=== PATIENT | female | born 1935 | race Caucasian/White ===

== ENCOUNTER → 2016-12-25 | Outpatient (CLI) | payer OTHER, MEDICAID ==
[~2016-12-25] MED LIST: ASPI81TA27 PO
[2016-12-25 15:28] LABS: Basophils # (auto) 0 uL; Basophils % (auto) 0.6 % (0.0-2.0); DEFINITIVE VIEW TRANSMISSION; Eosinophils # (auto) 0.1 uL; Hematocrit 39.3 % (36.0-46.0); Hemoglobin 12.7 g/dL (12.2-16.2); Lymphocytes # (auto) 2.9 uL; Lymphocytes % (auto) 34.2 % (10.0-50.0); Mean Corpuscular Hemoglobin 25.6 pg (28.0-32.0); Mean Corpuscular Hgb Conc. 32.3 g/dL (32.0-36.0); Mean Corpuscular Volume 79.3 fL (80.0-100.0); Mean Platelet Volume 8.2 fL (7.4-10.4); Monocytes # (auto) 0.5 uL; Monocytes % (auto) 5.6 % (0.0-12.0); Neutrophils # (auto) 4.9 uL; Neutrophils % (auto) 58.6 % (37.0-80.0); Platelet Count (auto) 347 10^3/uL (140-450); Red Cell Distribution Width 14.3 % (11.6-16.0); White Blood Cell 8.4 10^3/uL (4.4-10.8)
[2016-12-25 15:51] LABS: INR 1.04 (0.9-1.15); Partial Thromboplastin Time 24.6 sec (22.64-33.71); Prothrombin Time 10.7 sec (9.37-12.3)
[2016-12-25 16:05] LABS: Albumin 3.7 g/dL (3.4-5.0); BUN/Creatinine Ratio 12.8; Bilirubin, Total 0.6 mg/dL (0.2-1.0); Calcium 8.8 mg/dL (8.5-10.1); Total Protein 7.3 g/dL (6.4-8.2)
== END | disposition home or self-care (01) ==
LOC: LAB 14:29
PROVIDERS: ATTEND Orthopaedic Surgery
DX: M17.11 Unilateral primary osteoarthritis, right knee (principal)
CPT/HCPCS: 36415; 80053; 85025; 85610; 85730; 86850; 86900; 86901

== ENCOUNTER 2017-01-28 06:33 | Inpatient (IN) | payer OTHER, MEDICAID ==
[~2017-01-28] VITALS: Ht 175.3 cm; Wt 64.4 kg
[2017-01-28] MEDS ORDERED: SODIUM CHLORIDE 0.9% 1,000 ML IV ONE (06:50)
[2017-01-28] MEDS ORDERED: HYDROcodone-ACET 5/325MG TAB PO ONE (07:00)
[2017-01-28 07:38] LABS: Basophils # (auto) 0 uL; Basophils % (auto) 0.5 % (0.0-2.0); DEFINITIVE VIEW TRANSMISSION; Eosinophils # (auto) 0.1 uL; Eosinophils % (auto) 1.3 % (0.0-7.0); Hematocrit 35.2 % (36.0-46.0); Hemoglobin 11.7 g/dL (12.2-16.2); Lymphocytes # (auto) 1.6 uL; Lymphocytes % (auto) 24.8 % (10.0-50.0); Mean Corpuscular Hemoglobin 26.5 pg (28.0-32.0); Mean Corpuscular Hgb Conc. 33.2 g/dL (32.0-36.0); Mean Corpuscular Volume 79.9 fL (80.0-100.0); Mean Platelet Volume 8.1 fL (7.4-10.4); Monocytes # (auto) 0.4 uL; Monocytes % (auto) 6.6 % (0.0-12.0); Neutrophils # (auto) 4.4 uL; Neutrophils % (auto) 66.8 % (37.0-80.0); Platelet Count (auto) 394 10^3/uL (140-450); Red Cell Distribution Width 16.2 % (11.6-16.0); White Blood Cell 6.7 10^3/uL (4.4-10.8)
[2017-01-28 07:42] LABS: Calcium 8.2 mg/dL (8.5-10.1); Potassium 3.3 mmol/L (3.5-5.1)
[2017-01-28 07:44] LABS: BUN/Creatinine Ratio 22.5
[2017-01-28 08:00] LABS: Bilirubin, Total 0.6 mg/dL (0.2-1.0); Total Protein 6.5 g/dL (6.4-8.2)
[2017-01-28] MEDS ORDERED: ENOXAPARIN SOD 60 MG/0.6 ML SYRINGE SC ONE (08:15)
[2017-01-28] MEDS ORDERED: POTASSIUM CHL 10% (20 MEQ/15ML) ORAL SOLN PO ONE (08:15)
[2017-01-28] MEDS ORDERED: ACETAMINOPHEN 500 MG TAB PO PRN (09:00)
[2017-01-28] MEDS ORDERED: TEMAZEPAM 15 MG CAP PO PRN (09:00)
[2017-01-28] MEDS ORDERED: NITROGLYCERIN 0.4 MG SL TAB SL PRN (09:00)
[2017-01-28] MEDS ORDERED: MORPHINE SULF INJ 2 MG/ML SYRINGE 1ML IV PRN ×2 (09:00)
[2017-01-28] MEDS ORDERED: PROMETHAZINE HCL 25 MG/ML 1ML IV PRN (09:00)
[2017-01-28] MEDS ORDERED: HYDROcodone-ACET 5/325MG TAB PO PRN (09:00)
[2017-01-28] MEDS ORDERED: DEXTROSE (50%) 50ML SYRG IV PRN (09:00)
[2017-01-28] MEDS ORDERED: LORazepam 0.5 MG TAB PO PRN (09:00)
[2017-01-28] MEDS ORDERED: LACTULOSE 20Gm/30ML SOLN PO PRN (09:00)
[2017-01-28] MEDS: ENOXAPARIN SOD 60 MG/0.6 ML SYRINGE SC SCH ×3 (09:15→22:00)
[2017-01-28] MEDS: SODIUM CHLORIDE 0.9% 1,000 ML IV SCH ×2 (09:25→22:16)
[2017-01-28] MEDS: PANTOPRAZOLE 40 MG TAB PO SCH (10:00)
[2017-01-28] MEDS: NITROGLYCERIN 0.2MG/HR TOPICAL PATCH TD SCH (10:00)
[2017-01-28] MEDS: ASPirin 81 mg TAB PO SCH (10:00)
[2017-01-28] MEDS: METOPROLOL TARTRATE 25 MG TAB PO SCH ×2 (10:00→17:00)
[2017-01-28] MEDS: ACCU-CHEK COMFORT CURVE STRIP VI SCH ×3 (11:25→22:00)
[2017-01-28] MEDS: InsuLIN REG 1unit/0.01ml Soln (100units/ml) SC SCH ×3 (11:28→22:54)
[2017-01-28] MEDS ORDERED: CLOPIDOGREL 300 MG TAB PO ONE (13:15)
[2017-01-28 14:52] LABS: Urine Bilirubin Negative (Negative); Urine Blood Negative /uL (Negative); Urine Color Yellow (Yellow); Urine Glucose Normal (Normal); Urine Nitrite Negative (Negative); Urine RBC <1 /hpf (0 - 4); Urine Squamous Epithelial Cell FEW /hpf (<5)
[2017-01-28 14:56] LABS: Urine Ketone 1+ (Negative)
[2017-01-28] MEDS ORDERED: ATORVASTATIN 20 MG TAB PO SCH (22:00)
[2017-01-29] VITALS (7 sets, daily range): BP systolic 103–147; BP diastolic 35–66
[2017-01-29 06:20] LABS: Basophils # (auto) 0 uL; Basophils % (auto) 0.5 % (0.0-2.0); DEFINITIVE VIEW TRANSMISSION; Eosinophils # (auto) 0.1 uL; Eosinophils % (auto) 1.6 % (0.0-7.0); Hematocrit 32.1 % (36.0-46.0); Hemoglobin 10.6 g/dL (12.2-16.2); Lymphocytes % (auto) 31.1 % (10.0-50.0); Mean Corpuscular Hemoglobin 26.5 pg (28.0-32.0); Mean Corpuscular Hgb Conc. 33.1 g/dL (32.0-36.0); Mean Corpuscular Volume 80.2 fL (80.0-100.0); Mean Platelet Volume 8.4 fL (7.4-10.4); Monocytes # (auto) 0.4 uL; Monocytes % (auto) 7.1 % (0.0-12.0); Neutrophils # (auto) 3.8 uL; Neutrophils % (auto) 59.7 % (37.0-80.0); Platelet Count (auto) 351 10^3/uL (140-450); Red Cell Distribution Width 16.3 % (11.6-16.0); White Blood Cell 6.3 10^3/uL (4.4-10.8)
[2017-01-29] MEDS: ACCU-CHEK COMFORT CURVE STRIP VI SCH ×2 (06:20→11:45)
[2017-01-29] MEDS: InsuLIN REG 1unit/0.01ml Soln (100units/ml) SC SCH ×2 (06:20→11:30)
[2017-01-29 06:55] LABS: Potassium 3.3 mmol/L (3.5-5.1)
[2017-01-29 07:04] LABS: Albumin 2.5 g/dL (3.4-5.0); Bilirubin, Total 0.6 mg/dL (0.2-1.0); Calcium 7.6 mg/dL (8.5-10.1); Total Protein 5.7 g/dL (6.4-8.2)
[2017-01-29] MEDS: METOPROLOL TARTRATE 25 MG TAB PO SCH (10:00)
[2017-01-29] MEDS ORDERED: CLOPIDOGREL BISULFATE 75 MG TAB PO SCH (10:00)
[2017-01-29] MEDS: ENOXAPARIN SOD 60 MG/0.6 ML SYRINGE SC SCH (10:23)
[2017-01-29] MEDS: ASPirin 81 mg TAB PO SCH (10:23)
[2017-01-29] MEDS: NITROGLYCERIN 0.2MG/HR TOPICAL PATCH TD SCH (10:24)
[2017-01-29] MEDS: PANTOPRAZOLE 40 MG TAB PO SCH (10:27)
[2017-01-29] MEDS ORDERED: POTASSIUM CHL 20 Meq TABLET PO ONE (11:00)
[2017-01-29] MEDS ORDERED: ATOR80TA PO (12:02)
[2017-01-29] MEDS ORDERED: FAM20T PO (12:02)
[2017-01-29] MEDS ORDERED: MULTTAB67 OR (12:02)
[2017-01-29] MEDS ORDERED: LISI2.5T47 PO (12:02)
[2017-01-29] MEDS ORDERED: TICA90TA PO (12:02)
[2017-01-29] MEDS ORDERED: MULTTAB67 PO (12:02)
[2017-01-29] MEDS ORDERED: GLYB5TAB8 PO (12:02)
[2017-01-29] MEDS ORDERED: ASPI-378 PO (12:02)
[2017-01-29 12:08] LABS: Uric Acid 3.4 mg/dL (2.6-6.0)
[2017-01-29] MEDS ORDERED: ATORVASTATIN 20 MG TAB PO SCH (22:00)
[2017-01-30 08:10] LABS: Rheumatoid Arthritis Factor 12.8 IU/mL (0.0-13.9)
[2017-01-30] MEDS ORDERED: LISINOPRIL 5 MG TAB PO SCH (10:00)
[2017-01-30] MEDS ORDERED: ENOXAPARIN SOD 40 MG/0.4 ML SYRINGE SC SCH (10:00)
[2017-01-30 16:07] LABS: Sjogren's Anti-SS-A Antibody <0.2 AI (0.0-0.9)
== END 2017-01-29 16:50 | disposition home or self-care (01) | DRG 562 ==
LOC: EDBD 06:33 → ER 06:33 → TELE 06:34 → DOU IN ICU 01-29 02:29
PROVIDERS: ADMIT Internal Medicine; ATTEND Internal Medicine
DX: S93.491A Sprain of other ligament of right ankle, initial encounter (principal); I21.4 Non-ST elevation (NSTEMI) myocardial infarction; E43 Unspecified severe protein-calorie malnutrition; E44.1 Mild protein-calorie malnutrition; D63.8 Anemia in other chronic diseases classified elsewhere; E11.9 Type 2 diabetes mellitus without complications; E03.9 Hypothyroidism, unspecified; Z68.21 Body mass index [BMI] 21.0-21.9, adult; E78.5 Hyperlipidemia, unspecified; E87.6 Hypokalemia; F03.90 Unspecified dementia, unspecified severity, without behavioral disturbance, psychotic disturbance, mood disturbance, and anxiety; F32.9 Major depressive disorder, single episode, unspecified; F41.9 Anxiety disorder, unspecified; I10 Essential (primary) hypertension; Z96.651 Presence of right artificial knee joint; X58.XXXA Exposure to other specified factors, initial encounter; M19.90 Unspecified osteoarthritis, unspecified site; I44.0 Atrioventricular block, first degree; I25.10 Atherosclerotic heart disease of native coronary artery without angina pectoris; I25.2 Old myocardial infarction; Z82.49 Family history of ischemic heart disease and other diseases of the circulatory system; Z86.73 Personal history of transient ischemic attack (TIA), and cerebral infarction without residual deficits; Z95.5 Presence of coronary angioplasty implant and graft; Z90.49 Acquired absence of other specified parts of digestive tract; Z90.710 Acquired absence of both cervix and uterus; Z90.89 Acquired absence of other organs; Y93.9 Activity, unspecified; Y92.9 Unspecified place or not applicable; Y99.9 Unspecified external cause status
CPT/HCPCS: 36415; 73610; 80053; 80061; 81001; 82550; 82607; 82746; 82962; 83036; 83516; 84484; 84550; 85025; 85379; 85652; 86141; 86225; 86235; 86431; 87081; 93005; 93970; 96360; 96361

== ENCOUNTER 2017-01-31 20:58 | Emergency (ER) | payer OTHER, MEDICAID ==
[~2017-01-31] VITALS: Ht 175.3 cm; Wt 59.0 kg
[~2017-01-31 20:58] MED LIST changes: +ASPI-378 PO; -ASPI81TA27 PO; +ATOR80TA PO; +FAM20T PO; +GLYB5TAB8 PO; +LISI2.5T47 PO; +MULTTAB67 OR; +MULTTAB67 PO; +TICA90TA PO
[2017-01-31 22:55] VITALS: BP 132/76
[2017-01-31] MEDS ORDERED: traMADol HCL 50 MG TAB PO ONE (23:00)
== END 2017-01-31 23:20 | disposition home or self-care (01) ==
LOC: EDBD 20:58 → ER 21:02
DX: S86.911A Strain of unspecified muscle(s) and tendon(s) at lower leg level, right leg, initial encounter (principal); E11.9 Type 2 diabetes mellitus without complications; I10 Essential (primary) hypertension; E78.5 Hyperlipidemia, unspecified; E07.89 Other specified disorders of thyroid; Z90.89 Acquired absence of other organs; Z90.710 Acquired absence of both cervix and uterus
CPT/HCPCS: 73562; 82962; 93005

== ENCOUNTER → 2017-04-06 | Outpatient (CLI) | payer MEDICARE, MEDICAID ==
[2017-04-06 11:12] LABS: Basophils # (auto) 0.1 uL; Basophils % (auto) 0.7 % (0.0-2.0); Eosinophils # (auto) 0.3 uL; Eosinophils % (auto) 3.9 % (0.0-7.0); Hematocrit 39.2 % (36.0-46.0); Hemoglobin 12.9 g/dL (12.2-16.2); Lymphocytes # (auto) 1.9 uL; Lymphocytes % (auto) 24.9 % (10.0-50.0); Mean Corpuscular Hemoglobin 28.1 pg (28.0-32.0); Mean Corpuscular Hgb Conc. 33.1 g/dL (32.0-36.0); Mean Corpuscular Volume 84.9 fL (80.0-100.0); Mean Platelet Volume 8.1 fL (7.4-10.4); Monocytes # (auto) 0.4 uL; Monocytes % (auto) 5.5 % (0.0-12.0); Neutrophils # (auto) 4.9 uL; Platelet Count (auto) 354 10^3/uL (140-450); Red Cell Distribution Width 16.5 % (11.6-16.0); White Blood Cell 7.5 10^3/uL (4.4-10.8)
[2017-04-06 12:01] LABS: Albumin 3.8 g/dL (3.4-5.0); BUN/Creatinine Ratio 12.5; Bilirubin, Total 0.5 mg/dL (0.2-1.0); Calcium 8.8 mg/dL (8.5-10.1); Potassium 3.4 mmol/L (3.5-5.1); Total Protein 7.4 g/dL (6.4-8.2)
== END | disposition home or self-care (01) ==
LOC: LAB 09:34
DX: E11.21 Type 2 diabetes mellitus with diabetic nephropathy (principal)
CPT/HCPCS: 36415; 80053; 80061; 83036; 84443; 85025

== ENCOUNTER 2017-05-18 10:04 | Emergency (ER) | payer OTHER ==
[~2017-05-18] VITALS: Ht 175.3 cm; Wt 58.5 kg
[2017-05-18 10:24] VITALS: BP 138/98
[2017-05-18] MEDS ORDERED: KETOROLAC TROMETH 30 MG/ML 1ML VIAL IV ONE (11:30)
[2017-05-18] MEDS ORDERED: KETOROLAC TROMETH 30 MG/ML 1ML VIAL IM ONE (11:45)
== END 2017-05-18 12:37 | disposition home or self-care (01) ==
LOC: ER 10:04
DX: E11.9 Type 2 diabetes mellitus without complications (principal); M25.552 Pain in left hip; E78.5 Hyperlipidemia, unspecified; I10 Essential (primary) hypertension; E07.89 Other specified disorders of thyroid; Z90.49 Acquired absence of other specified parts of digestive tract; Z90.710 Acquired absence of both cervix and uterus; Z90.89 Acquired absence of other organs; Z79.899 Other long term (current) drug therapy
CPT/HCPCS: 74176; 96372; 99284; J1885

== ENCOUNTER 2017-07-01 15:12 | Inpatient (IN) | payer OTHER, MEDICAID ==
[~2017-07-01] VITALS: Ht 175.3 cm; Wt 58.1 kg
[2017-07-01] MEDS ORDERED: SODIUM CHLORIDE 0.9% 1,000 ML IV ONE (15:27)
[2017-07-01] MEDS ORDERED: LIDOCAINE 1% HCL (LOCAL ANESTH.) INJ 20ML MDV ID ONE (15:30)
[2017-07-01 16:07] LABS: Basophils # (auto) 0 uL; Basophils % (auto) 0.3 % (0.0-2.0); CONDITION Y; Eosinophils # (auto) 0 uL; Eosinophils % (auto) 0.2 % (0.0-7.0); Hematocrit 43.6 % (36.0-46.0); Hemoglobin 14.6 g/dL (12.2-16.2); Lymphocytes # (auto) 1.8 uL; Lymphocytes % (auto) 17.7 % (10.0-50.0); Mean Corpuscular Hemoglobin 28.2 pg (28.0-32.0); Mean Corpuscular Hgb Conc. 33.5 g/dL (32.0-36.0); Mean Corpuscular Volume 84.2 fL (80.0-100.0); Mean Platelet Volume 8.1 fL (7.4-10.4); Monocytes # (auto) 0.5 uL; Monocytes % (auto) 5.1 % (0.0-12.0); Neutrophils # (auto) 7.7 uL; Neutrophils % (auto) 76.7 % (37.0-80.0); Platelet Count (auto) 326 10^3/uL (140-450); Red Cell Distribution Width 13.9 % (11.6-16.0); White Blood Cell 10.1 10^3/uL (4.4-10.8)
[2017-07-01 16:24] LABS: Albumin 3.7 g/dL (3.4-5.0); BUN/Creatinine Ratio 13.3; Calcium 8.6 mg/dL (8.5-10.1); Magnesium 2.1 mg/dL (1.6-2.6); Potassium 3.1 mmol/L (3.5-5.1)
[2017-07-01 16:29] LABS: Bilirubin, Total 1.3 mg/dL (0.2-1.0); Total Protein 7.7 g/dL (6.4-8.2)
[2017-07-01 16:48] LABS: INR 0.98 (0.9-1.15); Partial Thromboplastin Time 25.1 sec (22.64-33.71); Prothrombin Time 10.7 sec (9.37-12.3)
[2017-07-01] MEDS ORDERED: LORazepam 0.5 MG TAB PO PRN (17:15)
[2017-07-01] MEDS ORDERED: PROMETHAZINE HCL 25 MG/ML 1ML IV PRN (17:15)
[2017-07-01] MEDS ORDERED: NITROGLYCERIN 0.4 MG SL TAB SL PRN (17:15)
[2017-07-01] MEDS ORDERED: LACTULOSE 20Gm/30ML SOLN PO PRN (17:15)
[2017-07-01] MEDS ORDERED: HYDROcodone-ACET 5/325MG TAB PO PRN (17:15)
[2017-07-01] MEDS ORDERED: ACETAMINOPHEN 500 MG TAB PO PRN (17:15)
[2017-07-01] MEDS ORDERED: MORPHINE SULF INJ 2 MG/ML SYRINGE 1ML IV PRN ×2 (17:15)
[2017-07-01] MEDS ORDERED: DEXTROSE (50%) 50ML SYRG IV PRN (17:15)
[2017-07-01] MEDS ORDERED: POTASSIUM CHL 20MEQ/100ML 100 ML IV ONE (17:15)
[2017-07-01] MEDS ORDERED: TEMAZEPAM 15 MG CAP PO PRN (17:15)
[2017-07-01] MEDS: SODIUM CHLORIDE 0.9% 1,000 ML IV SCH (18:00)
[2017-07-01] MEDS: FAMOTIDINE 20 MG TAB PO SCH (18:38)
[2017-07-01] MEDS: glyBURIDE 5 MG TAB PO SCH (18:47)
[2017-07-01 19:03] LABS: Temperature: 22.2 C (20.0-25.0)
[2017-07-01] MEDS ORDERED: CYANOCOBALAMIN (B-12) 1000 MCG/1 ML VIAL IM ONE (20:15)
[2017-07-01 20:30] VITALS: BP 134/74
[2017-07-01] MEDS: TICAGRELOR 90 MG TAB PO SCH (21:48)
[2017-07-01] MEDS: FOLIC ACID 1 MG in D5W 5% 50 ML INJ SCH (21:58)
[2017-07-01 22:00] VITALS: BP 134/74
[2017-07-01] MEDS ORDERED: ATORVASTATIN 20 MG TAB PO SCH (22:00)
[2017-07-01] MEDS: ATORVASTATIN 20 MG TAB PO SCH (22:03)
[2017-07-01] MEDS: ACCU-CHEK COMFORT CURVE STRIP VI SCH (22:15)
[2017-07-01] MEDS: InsuLIN REG 1unit/0.01ml Soln (100units/ml) SC SCH (22:15)
[2017-07-02] MEDS: SODIUM CHLORIDE 0.9% 1,000 ML IV SCH ×2 (04:53→17:55)
[2017-07-02 05:00] VITALS: BP 137/71
[2017-07-02] MEDS: InsuLIN REG 1unit/0.01ml Soln (100units/ml) SC SCH ×4 (06:20→22:00)
[2017-07-02] MEDS: ACCU-CHEK COMFORT CURVE STRIP VI SCH ×4 (06:20→22:25)
[2017-07-02 08:33] VITALS: BP 140/80
[2017-07-02] MEDS: TICAGRELOR 90 MG TAB PO SCH ×2 (10:00→22:20)
[2017-07-02] MEDS ORDERED: POTASSIUM CHL 20 Meq TABLET PO ONE (11:00)
[2017-07-02] MEDS: ASPirin-EC 81 mg tab PO SCH (11:40)
[2017-07-02] MEDS: LISINOPRIL 5 MG TAB PO SCH (11:42)
[2017-07-02] MEDS: glyBURIDE 5 MG TAB PO SCH ×2 (11:42→17:54)
[2017-07-02] MEDS: ENOXAPARIN SOD 40 MG/0.4 ML SYRINGE SC SCH (11:43)
[2017-07-02] MEDS: CYANOCOBALAMIN 500 MCG TAB PO SCH (11:43)
[2017-07-02] MEDS: FAMOTIDINE 20 MG TAB PO SCH (11:43)
[2017-07-02] MEDS: FOLIC ACID 1 MG in D5W 5% 50 ML INJ SCH (11:45)
[2017-07-02 13:29] VITALS: BP 137/73
[2017-07-02 16:57] VITALS: BP 129/73
[2017-07-02 22:00] VITALS: BP 110/65
[2017-07-02] MEDS: ATORVASTATIN 20 MG TAB PO SCH (22:23)
[2017-07-03 05:00] VITALS: BP 122/70
[2017-07-03] MEDS: ACCU-CHEK COMFORT CURVE STRIP VI SCH ×4 (06:35→22:20)
[2017-07-03] MEDS: InsuLIN REG 1unit/0.01ml Soln (100units/ml) SC SCH ×4 (06:36→22:26)
[2017-07-03] MEDS: SODIUM CHLORIDE 0.9% 1,000 ML IV SCH ×2 (06:41→19:11)
[2017-07-03 06:55] LABS: BUN/Creatinine Ratio 24.6; Calcium 7.8 mg/dL (8.5-10.1)
[2017-07-03 07:05] LABS: Potassium 2.9 mmol/L (3.5-5.1)
[2017-07-03] MEDS ORDERED: POTASSIUM CHL 20 Meq TABLET PO ONE (07:45)
[2017-07-03] MEDS: glyBURIDE 5 MG TAB PO SCH ×2 (08:00→17:31)
[2017-07-03 08:08] VITALS: BP 109/60
[2017-07-03] MEDS: FOLIC ACID 1 MG in D5W 5% 50 ML INJ SCH (10:00)
[2017-07-03] MEDS: CYANOCOBALAMIN 500 MCG TAB PO SCH (10:21)
[2017-07-03] MEDS: ENOXAPARIN SOD 40 MG/0.4 ML SYRINGE SC SCH (10:21)
[2017-07-03] MEDS: TICAGRELOR 90 MG TAB PO SCH ×2 (10:21→22:19)
[2017-07-03] MEDS: FAMOTIDINE 20 MG TAB PO SCH (10:22)
[2017-07-03] MEDS: ASPirin-EC 81 mg tab PO SCH (10:22)
[2017-07-03] MEDS: LISINOPRIL 5 MG TAB PO SCH (10:23)
[2017-07-03 12:17] VITALS: BP 95/53
[2017-07-03 16:31] VITALS: BP 91/57
[2017-07-03 21:55] VITALS: BP 126/63
[2017-07-03] MEDS: ATORVASTATIN 20 MG TAB PO SCH (22:19)
[2017-07-04 04:53] VITALS: BP 148/79
[2017-07-04] MEDS: ACCU-CHEK COMFORT CURVE STRIP VI SCH ×4 (06:37→22:46)
[2017-07-04] MEDS: InsuLIN REG 1unit/0.01ml Soln (100units/ml) SC SCH ×4 (06:37→22:46)
[2017-07-04 06:39] LABS: Basophils # (auto) 0 uL; Basophils % (auto) 0.4 % (0.0-2.0); CONDITION Y; Eosinophils # (auto) 0.2 uL; Eosinophils % (auto) 2.6 % (0.0-7.0); Hematocrit 35.7 % (36.0-46.0); Hemoglobin 12.1 g/dL (12.2-16.2); Lymphocytes # (auto) 1.8 uL; Lymphocytes % (auto) 27.8 % (10.0-50.0); Mean Corpuscular Hemoglobin 28.5 pg (28.0-32.0); Mean Corpuscular Hgb Conc. 33.9 g/dL (32.0-36.0); Mean Corpuscular Volume 84.1 fL (80.0-100.0); Mean Platelet Volume 8.2 fL (7.4-10.4); Monocytes # (auto) 0.4 uL; Monocytes % (auto) 6.2 % (0.0-12.0); Platelet Count (auto) 268 10^3/uL (140-450); White Blood Cell 6.4 10^3/uL (4.4-10.8)
[2017-07-04 06:56] LABS: INR 0.98 (0.9-1.15); Prothrombin Time 10.7 sec (9.37-12.3)
[2017-07-04 07:00] LABS: Albumin 2.8 g/dL (3.4-5.0); BUN/Creatinine Ratio 23.4; Bilirubin, Total 0.7 mg/dL (0.2-1.0); Calcium 8.2 mg/dL (8.5-10.1); Magnesium 2.2 mg/dL (1.6-2.6); Potassium 3.5 mmol/L (3.5-5.1)
[2017-07-04] MEDS: glyBURIDE 5 MG TAB PO SCH ×2 (08:00→17:37)
[2017-07-04 08:12] VITALS: BP 132/66
[2017-07-04] MEDS: FAMOTIDINE 20 MG TAB PO SCH (09:46)
[2017-07-04] MEDS: TICAGRELOR 90 MG TAB PO SCH ×2 (09:46→22:45)
[2017-07-04] MEDS: ASPirin-EC 81 mg tab PO SCH (09:46)
[2017-07-04] MEDS: LISINOPRIL 5 MG TAB PO SCH (09:47)
[2017-07-04] MEDS: ENOXAPARIN SOD 40 MG/0.4 ML SYRINGE SC SCH (09:48)
[2017-07-04] MEDS: SODIUM CHLORIDE 0.9% 1,000 ML IV SCH ×2 (09:52→20:11)
[2017-07-04] MEDS: FOLIC ACID 1 MG in D5W 5% 50 ML INJ SCH (09:58)
[2017-07-04] MEDS: CYANOCOBALAMIN 500 MCG TAB PO SCH (09:59)
[2017-07-04] MEDS: Boost Glucose Control 8 Ounces PO SCH ×2 (11:34→17:36)
[2017-07-04] MEDS ORDERED: MULTIPLE VITAMINS W/ MINERALS TAB PO ONE (11:45)
[2017-07-04] MEDS ORDERED: ASCORBIC ACID 500 MG TAB PO ONE (11:45)
[2017-07-04 12:05] VITALS: BP 120/69
[2017-07-04 16:33] VITALS: BP 122/65
[2017-07-04] MEDS: PRO-STAT 64 30ML PO SCH (17:37)
[2017-07-04 21:36] VITALS: BP 142/75
[2017-07-04] MEDS: ATORVASTATIN 20 MG TAB PO SCH (22:45)
[2017-07-04] MEDS: ASCORBIC ACID 500 MG TAB PO SCH (22:46)
[2017-07-05 04:56] VITALS: BP 138/80
[2017-07-05 06:23] LABS: Basophils # (auto) 0 uL; Basophils % (auto) 0.5 % (0.0-2.0); CONDITION Y; Eosinophils # (auto) 0.1 uL; Eosinophils % (auto) 1.6 % (0.0-7.0); Hematocrit 38.6 % (36.0-46.0); Hemoglobin 12.9 g/dL (12.2-16.2); Lymphocytes # (auto) 1.9 uL; Lymphocytes % (auto) 29.5 % (10.0-50.0); Mean Corpuscular Hemoglobin 28.2 pg (28.0-32.0); Mean Corpuscular Hgb Conc. 33.5 g/dL (32.0-36.0); Monocytes # (auto) 0.4 uL; Monocytes % (auto) 5.4 % (0.0-12.0); Neutrophils # (auto) 4.1 uL; Platelet Count (auto) 294 10^3/uL (140-450); Red Cell Distribution Width 14.1 % (11.6-16.0); White Blood Cell 6.5 10^3/uL (4.4-10.8)
[2017-07-05] MEDS: ACCU-CHEK COMFORT CURVE STRIP VI SCH ×4 (06:33→22:26)
[2017-07-05] MEDS: InsuLIN REG 1unit/0.01ml Soln (100units/ml) SC SCH ×4 (06:34→22:00)
[2017-07-05 06:39] LABS: INR 0.98 (0.9-1.15); Prothrombin Time 10.7 sec (9.37-12.3)
[2017-07-05 06:46] LABS: Albumin 3.1 g/dL (3.4-5.0); BUN/Creatinine Ratio 18.4; Calcium 8.1 mg/dL (8.5-10.1); Magnesium 2.3 mg/dL (1.6-2.6); Potassium 3.5 mmol/L (3.5-5.1)
[2017-07-05 06:48] LABS: Bilirubin, Total 0.8 mg/dL (0.2-1.0); Total Protein 6.7 g/dL (6.4-8.2)
[2017-07-05] MEDS: Boost Glucose Control 8 Ounces PO SCH ×3 (08:00→18:00)
[2017-07-05] MEDS: glyBURIDE 5 MG TAB PO SCH ×2 (08:08→18:00)
[2017-07-05 09:00] VITALS: BP 127/73
[2017-07-05] MEDS: LISINOPRIL 5 MG TAB PO SCH (10:00)
[2017-07-05] MEDS: FOLIC ACID 1 MG in D5W 5% 50 ML INJ SCH (10:00)
[2017-07-05] MEDS: ASCORBIC ACID 500 MG TAB PO SCH ×2 (11:15→22:26)
[2017-07-05] MEDS: MULTIPLE VITAMINS W/ MINERALS TAB PO SCH (11:15)
[2017-07-05] MEDS: ASPirin-EC 81 mg tab PO SCH (11:16)
[2017-07-05] MEDS: CYANOCOBALAMIN 500 MCG TAB PO SCH (11:16)
[2017-07-05] MEDS: FAMOTIDINE 20 MG TAB PO SCH (11:17)
[2017-07-05] MEDS: TICAGRELOR 90 MG TAB PO SCH ×2 (11:18→22:26)
[2017-07-05] MEDS: ENOXAPARIN SOD 40 MG/0.4 ML SYRINGE SC SCH (11:18)
[2017-07-05] MEDS: PRO-STAT 64 30ML PO SCH ×2 (12:59→18:00)
[2017-07-05 14:07] VITALS: BP 136/65
[2017-07-05 17:40] VITALS: BP 131/65
[2017-07-05] MEDS: SODIUM CHLORIDE 0.9% 1,000 ML IV SCH (21:11)
[2017-07-05 22:26] VITALS: BP 130/68
[2017-07-05] MEDS: ATORVASTATIN 20 MG TAB PO SCH (22:26)
[2017-07-06 05:36] VITALS: BP 152/71
[2017-07-06] MEDS: InsuLIN REG 1unit/0.01ml Soln (100units/ml) SC SCH ×4 (06:29→22:00)
[2017-07-06] MEDS: ACCU-CHEK COMFORT CURVE STRIP VI SCH ×4 (06:29→22:17)
[2017-07-06] MEDS: glyBURIDE 5 MG TAB PO SCH ×2 (08:00→17:57)
[2017-07-06] MEDS: PRO-STAT 64 30ML PO SCH ×2 (08:24→18:18)
[2017-07-06] MEDS: Boost Glucose Control 8 Ounces PO SCH ×3 (08:24→18:18)
[2017-07-06 08:43] VITALS: BP 117/69
[2017-07-06] MEDS: TICAGRELOR 90 MG TAB PO SCH ×2 (09:37→22:17)
[2017-07-06] MEDS: ASPirin-EC 81 mg tab PO SCH (09:37)
[2017-07-06] MEDS: FAMOTIDINE 20 MG TAB PO SCH (09:37)
[2017-07-06] MEDS: CYANOCOBALAMIN 500 MCG TAB PO SCH (09:37)
[2017-07-06] MEDS: MULTIPLE VITAMINS W/ MINERALS TAB PO SCH (09:37)
[2017-07-06] MEDS: ASCORBIC ACID 500 MG TAB PO SCH ×2 (09:37→22:17)
[2017-07-06] MEDS: LISINOPRIL 5 MG TAB PO SCH (09:38)
[2017-07-06] MEDS: ENOXAPARIN SOD 40 MG/0.4 ML SYRINGE SC SCH (09:39)
[2017-07-06] MEDS: SODIUM CHLORIDE 0.9% 1,000 ML IV SCH ×2 (09:41→22:18)
[2017-07-06 12:00] VITALS: BP 118/63
[2017-07-06] MEDS: FOLIC ACID 1 MG in D5W 5% 50 ML INJ SCH (12:54)
[2017-07-06 17:00] VITALS: BP 129/53
[2017-07-06 21:11] VITALS: BP 109/60
[2017-07-06] MEDS: ATORVASTATIN 20 MG TAB PO SCH (22:17)
[2017-07-07 04:00] VITALS: BP 86/44
[2017-07-07 05:20] VITALS: BP 115/61
[2017-07-07] MEDS: ACCU-CHEK COMFORT CURVE STRIP VI SCH ×4 (06:40→22:32)
[2017-07-07] MEDS: InsuLIN REG 1unit/0.01ml Soln (100units/ml) SC SCH ×4 (06:41→22:34)
[2017-07-07 07:55] VITALS: BP 111/53
[2017-07-07] MEDS: glyBURIDE 5 MG TAB PO SCH ×2 (08:00→18:00)
[2017-07-07] MEDS: Boost Glucose Control 8 Ounces PO SCH ×3 (08:12→18:31)
[2017-07-07] MEDS: PRO-STAT 64 30ML PO SCH ×2 (08:12→18:31)
[2017-07-07] MEDS: ENOXAPARIN SOD 40 MG/0.4 ML SYRINGE SC SCH (09:41)
[2017-07-07] MEDS: FOLIC ACID 1 MG in D5W 5% 50 ML INJ SCH (09:42)
[2017-07-07] MEDS: CYANOCOBALAMIN 500 MCG TAB PO SCH (09:42)
[2017-07-07] MEDS: ASPirin-EC 81 mg tab PO SCH (09:42)
[2017-07-07] MEDS: TICAGRELOR 90 MG TAB PO SCH ×2 (09:42→22:32)
[2017-07-07] MEDS: LISINOPRIL 5 MG TAB PO SCH (09:42)
[2017-07-07] MEDS: FAMOTIDINE 20 MG TAB PO SCH (09:42)
[2017-07-07] MEDS: MULTIPLE VITAMINS W/ MINERALS TAB PO SCH (09:42)
[2017-07-07] MEDS: ASCORBIC ACID 500 MG TAB PO SCH ×2 (10:00→22:32)
[2017-07-07 12:22] VITALS: BP 110/52
[2017-07-07 17:02] VITALS: BP 103/52
[2017-07-07 22:00] VITALS: BP 124/74
[2017-07-07] MEDS: ATORVASTATIN 20 MG TAB PO SCH (22:32)
[2017-07-08 05:00] VITALS: BP 121/64
[2017-07-08] MEDS: InsuLIN REG 1unit/0.01ml Soln (100units/ml) SC SCH (06:56)
[2017-07-08] MEDS: ACCU-CHEK COMFORT CURVE STRIP VI SCH (06:56)
[2017-07-08] MEDS: PRO-STAT 64 30ML PO SCH ×2 (08:18→18:23)
[2017-07-08] MEDS: Boost Glucose Control 8 Ounces PO SCH ×3 (08:18→18:23)
[2017-07-08] MEDS: glyBURIDE 5 MG TAB PO SCH ×2 (08:21→18:00)
[2017-07-08 08:54] VITALS: BP 110/60
[2017-07-08] MEDS: CYANOCOBALAMIN 500 MCG TAB PO SCH (10:46)
[2017-07-08] MEDS: MULTIPLE VITAMINS W/ MINERALS TAB PO SCH (10:46)
[2017-07-08] MEDS: FOLIC ACID 1 MG in D5W 5% 50 ML INJ SCH (10:46)
[2017-07-08] MEDS: ASCORBIC ACID 500 MG TAB PO SCH ×2 (10:46→21:37)
[2017-07-08] MEDS: TICAGRELOR 90 MG TAB PO SCH ×2 (10:47→21:37)
[2017-07-08] MEDS: FAMOTIDINE 20 MG TAB PO SCH (10:47)
[2017-07-08] MEDS: ENOXAPARIN SOD 40 MG/0.4 ML SYRINGE SC SCH (10:48)
[2017-07-08] MEDS: LISINOPRIL 5 MG TAB PO SCH (10:48)
[2017-07-08] MEDS: ASPirin-EC 81 mg tab PO SCH (10:56)
[2017-07-08 13:00] VITALS: BP 126/67
[2017-07-08] MEDS: ATORVASTATIN 20 MG TAB PO SCH (21:37)
[2017-07-08 22:00] VITALS: BP 118/71
[2017-07-09 05:00] VITALS: BP 133/76
[2017-07-09] MEDS: glyBURIDE 5 MG TAB PO SCH ×2 (08:00→18:00)
[2017-07-09 08:50] VITALS: BP 118/59
[2017-07-09] MEDS: FOLIC ACID 1 MG in D5W 5% 50 ML INJ SCH (10:00)
[2017-07-09] MEDS: LISINOPRIL 5 MG TAB PO SCH (10:29)
[2017-07-09] MEDS: CYANOCOBALAMIN 500 MCG TAB PO SCH (10:30)
[2017-07-09] MEDS: MULTIPLE VITAMINS W/ MINERALS TAB PO SCH (10:30)
[2017-07-09] MEDS: ASCORBIC ACID 500 MG TAB PO SCH ×2 (10:30→22:00)
[2017-07-09] MEDS: FAMOTIDINE 20 MG TAB PO SCH (10:31)
[2017-07-09] MEDS: Boost Glucose Control 8 Ounces PO SCH ×3 (10:31→18:31)
[2017-07-09] MEDS: ENOXAPARIN SOD 40 MG/0.4 ML SYRINGE SC SCH (10:31)
[2017-07-09] MEDS: TICAGRELOR 90 MG TAB PO SCH ×2 (10:31→22:01)
[2017-07-09] MEDS: ASPirin-EC 81 mg tab PO SCH (10:31)
[2017-07-09] MEDS: PRO-STAT 64 30ML PO SCH ×2 (10:32→18:31)
[2017-07-09 12:42] VITALS: BP 140/59
[2017-07-09 17:05] VITALS: BP 99/59
[2017-07-09 22:00] VITALS: BP 138/84
[2017-07-09] MEDS: ATORVASTATIN 20 MG TAB PO SCH (22:00)
[2017-07-10 05:00] VITALS: BP 116/63
[2017-07-10] MEDS: PRO-STAT 64 30ML PO SCH (08:00)
[2017-07-10] MEDS: glyBURIDE 5 MG TAB PO SCH (08:00)
[2017-07-10 09:00] VITALS: BP 125/73
[2017-07-10] MEDS: Boost Glucose Control 8 Ounces PO SCH ×2 (10:00→16:44)
[2017-07-10] MEDS: FOLIC ACID 1 MG in D5W 5% 50 ML INJ SCH (10:00)
[2017-07-10] MEDS: MULTIPLE VITAMINS W/ MINERALS TAB PO SCH (10:01)
[2017-07-10] MEDS: LISINOPRIL 5 MG TAB PO SCH (10:01)
[2017-07-10] MEDS: FAMOTIDINE 20 MG TAB PO SCH (10:02)
[2017-07-10] MEDS: ASPirin-EC 81 mg tab PO SCH (10:02)
[2017-07-10] MEDS: TICAGRELOR 90 MG TAB PO SCH (10:02)
[2017-07-10] MEDS: ASCORBIC ACID 500 MG TAB PO SCH (10:03)
[2017-07-10] MEDS: CYANOCOBALAMIN 500 MCG TAB PO SCH (10:03)
[2017-07-10] MEDS: ENOXAPARIN SOD 40 MG/0.4 ML SYRINGE SC SCH (10:03)
[2017-07-10] MEDS ORDERED: MORPHINE SULF INJ 2 MG/ML SYRINGE 1ML IV PRN ×2 (10:15)
[2017-07-10] MEDS ORDERED: TEMAZEPAM 15 MG CAP PO PRN (10:15)
[2017-07-10] MEDS ORDERED: HYDROcodone-ACET 5/325MG TAB PO PRN (10:15)
[2017-07-10] MEDS ORDERED: LORazepam 0.5 MG TAB PO PRN (10:15)
[2017-07-10] MEDS ORDERED: FOLIC ACID 1 MG TAB PO SCH (10:30)
[2017-07-10 13:00] VITALS: BP 122/60
[2017-07-11] MEDS ORDERED: ENOXAPARIN SOD 40 MG/0.4 ML SYRINGE SC SCH (10:00)
== END 2017-07-10 21:50 | disposition home or self-care (01) | DRG 65 ==
LOC: EDBD 15:12 → ER 15:21 → TELE 15:22 → TELE-EAST 19:34 → EAST 07-10 17:05
PROVIDERS: ADMIT Internal Medicine; ATTEND Family Medicine
PROC: 0HQ0XZZ Repair Scalp Skin, External Approach (ICD-10-PCS; principal; 2017-07-01)
DX: I63.9 Cerebral infarction, unspecified (principal); S06.0X9A Concussion with loss of consciousness of unspecified duration, initial encounter; I31.3 Pericardial effusion (noninflammatory); E03.9 Hypothyroidism, unspecified; E53.8 Deficiency of other specified B group vitamins; E78.5 Hyperlipidemia, unspecified; I10 Essential (primary) hypertension; Z96.651 Presence of right artificial knee joint; E11.65 Type 2 diabetes mellitus with hyperglycemia; H35.30 Unspecified macular degeneration; S01.81XA Laceration without foreign body of other part of head, initial encounter; F32.9 Major depressive disorder, single episode, unspecified; W18.30XA Fall on same level, unspecified, initial encounter; E87.6 Hypokalemia; F41.9 Anxiety disorder, unspecified; Z82.49 Family history of ischemic heart disease and other diseases of the circulatory system; Z90.710 Acquired absence of both cervix and uterus; Z90.49 Acquired absence of other specified parts of digestive tract; Z84.89 Family history of other specified conditions; Z90.89 Acquired absence of other organs; Z98.42 Cataract extraction status, left eye; Z98.41 Cataract extraction status, right eye; Z79.82 Long term (current) use of aspirin; Z79.899 Other long term (current) drug therapy; Y93.89 Activity, other specified; Y92.89 Other specified places as the place of occurrence of the external cause; Y99.8 Other external cause status; Z81.8 Family history of other mental and behavioral disorders
CPT/HCPCS: 12013; 36415; 70450; 70551; 71010; 73562; 80048; 80053; 80061; 82550; 82607; 82746; 82962; 83036; 83735; 84132; 84443; 84484; 85025; 85379; 85610; 85652; 85730; 86141; 87081; 93005; 93306; 93886; 95819; 96361; 96365; 96372; 97110; 97116; 97163; 97530; J1815; J2001; J3480; J7060

== ENCOUNTER 2017-08-26 12:28 | Emergency (ER) | payer OTHER, MEDICAID ==
[~2017-08-26] VITALS: Ht 175.3 cm; Wt 61.2 kg
[~2017-08-26 12:28] MED LIST changes: +ACE3T PO; +CYAN100023 PO; +FOLI1TAB6 PO; +IBUP800T24 PO; -MULTTAB67 OR
[2017-08-26 13:01] LABS: Basophils # (auto) 0.1 uL; Basophils % (auto) 1.3 % (0.0-2.0); Eosinophils # (auto) 0.2 uL; Eosinophils % (auto) 2.4 % (0.0-7.0); Hematocrit 37.2 % (36.0-46.0); Hemoglobin 12.4 g/dL (12.2-16.2); Lymphocytes # (auto) 1.8 uL; Lymphocytes % (auto) 20.1 % (10.0-50.0); Mean Corpuscular Hemoglobin 28.4 pg (28.0-32.0); Mean Corpuscular Hgb Conc. 33.4 g/dL (32.0-36.0); Mean Platelet Volume 7.9 fL (6.9-10.8); Monocytes # (auto) 0.4 uL; Monocytes % (auto) 4.8 % (0.0-12.0); Neutrophils # (auto) 6.4 uL; Neutrophils % (auto) 71.4 % (37.0-80.0); Platelet Count (auto) 261 10^3/uL (140-450); Red Cell Distribution Width 15.9 % (11.8-14.3)
[2017-08-26] MEDS ORDERED: FLEET ENEMA(ADULT) 135 ML PR ONE (13:15)
[2017-08-26 13:21] LABS: Albumin 3.4 g/dL (3.4-5.0); BUN/Creatinine Ratio 30.3; Bilirubin, Total 0.7 mg/dL (0.2-1.0); Calcium 8.6 mg/dL (8.5-10.1); Magnesium 2.2 mg/dL (1.6-2.6)
[2017-08-26 13:26] LABS: Potassium 2.8 mmol/L (3.5-5.1)
[2017-08-26] MEDS ORDERED: POTASSIUM CHL 20MEQ/100ML 100 ML IV ONE (14:00)
[2017-08-26 16:33] VITALS: BP 142/78
== END 2017-08-26 15:27 | disposition home or self-care (01) ==
LOC: ER 12:28
DX: K80.20 Calculus of gallbladder without cholecystitis without obstruction (principal); K59.00 Constipation, unspecified; E87.6 Hypokalemia; E07.89 Other specified disorders of thyroid; E11.9 Type 2 diabetes mellitus without complications; E78.5 Hyperlipidemia, unspecified; I10 Essential (primary) hypertension; Z90.710 Acquired absence of both cervix and uterus; Z90.49 Acquired absence of other specified parts of digestive tract; Z90.89 Acquired absence of other organs; Z79.899 Other long term (current) drug therapy
CPT/HCPCS: 36415; 74176; 80053; 83735; 84484; 85025; 93005; 96365; 96366; 99285; J3480; J7030

== ENCOUNTER 2018-01-05 15:29 | Inpatient (IN) | payer MEDICARE, MEDICAID ==
[~2018-01-05] VITALS: Ht 175.3 cm; Wt 48.9 kg
[2018-01-05 21:40] LABS: Basophils # (auto) 0 uL; Basophils % (auto) 0.6 % (0.0-2.0); Eosinophils # (auto) 0.1 uL; Eosinophils % (auto) 1.5 % (0.0-7.0); Hematocrit 39.5 % (36.0-46.0); Hemoglobin 12.8 g/dL (12.2-16.2); Lymphocytes # (auto) 1.3 uL; Lymphocytes % (auto) 14.7 % (10.0-50.0); Mean Corpuscular Hemoglobin 27.9 pg (28.0-32.0); Mean Corpuscular Hgb Conc. 32.4 g/dL (32.0-36.0); Mean Corpuscular Volume 86.1 fL (80.0-100.0); Monocytes # (auto) 0.4 uL; Neutrophils # (auto) 6.8 uL; Neutrophils % (auto) 78.2 % (37.0-80.0); Platelet Count (auto) 338 10^3/uL (140-450); Red Blood Cells 4.59 10^6/uL (4.0-5.20); Red Cell Distribution Width 15.5 % (11.8-14.3); White Blood Cell 8.7 10^3/uL (4.4-10.8)
[2018-01-05 21:57] LABS: Albumin 3.5 g/dL (3.4-5.0); BUN/Creatinine Ratio 20.8; Calcium 8.7 mg/dL (8.5-10.1)
[2018-01-05 21:59] LABS: Bilirubin, Total 0.6 mg/dL (0.2-1.0); Total Protein 7.7 g/dL (6.4-8.2)
[2018-01-05 22:02] LABS: Lactic Acid w/Reflex 3.4 mmol/L (0.4-2.0)
[2018-01-05 22:22] LABS: Potassium 2.5 mmol/L (3.5-5.1)
[2018-01-05] MEDS ORDERED: POTASSIUM CHL 20 Meq TABLET PO ONE (23:00)
[2018-01-05] MEDS: ACCU-CHEK COMFORT CURVE STRIP VI SCH (23:45)
[2018-01-05] MEDS: InsuLIN REG 1unit/0.01ml Soln (100units/ml) SC SCH (23:55)
[2018-01-06] MEDS ORDERED: SODIUM CHLORIDE 0.9% 1,000 ML IV ONE ×2 (00:45)
[2018-01-06] MEDS ORDERED: cefTRIAXone 1GM/10ml IVPUSH 10 ML IV ONE (02:00)
[2018-01-06] MEDS ORDERED: cefTRIAXone SOD 1,000 MG VL ONE (02:02)
[2018-01-06 04:04] LABS: Lactic Acid w/Reflex 3.3 mmol/L (0.4-2.0)
[2018-01-06] MEDS ORDERED: LORazepam 2MG/ML-1ML VIAL IV ONE (04:45)
[2018-01-06] MEDS ORDERED: SODIUM CHLORIDE 0.9% 1,000 ML IV SCH (05:38)
[2018-01-06] MEDS ORDERED: ACETAMINOPHEN 325 MG TAB PO PRN (05:45)
[2018-01-06] MEDS ORDERED: ONDANSETRON HCL 4 MG/2 ML VIAL IV PRN (05:45)
[2018-01-06] MEDS ORDERED: MORPHINE SULFATE 4 MG/ML SYR/VIAL IV PRN (05:45)
[2018-01-06] MEDS ORDERED: NITROGLYCERIN 0.4 MG SL TAB SL PRN (05:45)
[2018-01-06] MEDS ORDERED: VANCOMYCIN 1GM/250ML 250 ML IV ONE (05:45)
[2018-01-06] MEDS ORDERED: DEXTROSE (50%) 50ML SYRG IV PRN (05:45)
[2018-01-06] MEDS: ACCU-CHEK COMFORT CURVE STRIP VI SCH ×3 (07:00→17:01)
[2018-01-06 07:06] LABS: Urine Bacteria MOD /hpf (None Seen); Urine Blood Negative /uL (Negative); Urine Specific Gravity 1.013 (1.001-1.035); Urine WBC 43 /hpf (0 - 5)
[2018-01-06] MEDS: InsuLIN REG 1unit/0.01ml Soln (100units/ml) SC SCH ×3 (08:00→17:02)
[2018-01-06] MEDS: FAMOTIDINE 20 MG TAB PO SCH ×2 (09:39→22:00)
[2018-01-06] MEDS: LISINOPRIL 5 MG TAB PO SCH (09:45)
[2018-01-06] MEDS: FOLIC ACID 1 MG TAB PO SCH (09:45)
[2018-01-06] MEDS: LEVOFLOXACIN 500MG 100 ML IV SCH (09:45)
[2018-01-06] MEDS: ENOXAPARIN SOD 40 MG/0.4 ML SYRINGE SC SCH (09:46)
[2018-01-06] MEDS: TICAGRELOR 90 MG TAB PO SCH ×2 (11:21→23:00)
[2018-01-06 12:42] VITALS: BP 122/65
[2018-01-06] MEDS ORDERED: VANCOMYCIN PER PHARMACY 0 MG IV SCH (13:30)
[2018-01-06] MEDS: VANCOMYCIN 750 MG in D5W 5% 250 ML IV SCH (15:34)
[2018-01-06 15:39] LABS: Magnesium 1.8 mg/dL (1.6-2.6)
[2018-01-06 15:59] LABS: Potassium 2.9 mmol/L (3.5-5.1)
[2018-01-06] MEDS ORDERED: POTASSIUM CHL 20 Meq TABLET PO ONE (16:00)
[2018-01-06] MEDS ORDERED: MAGNESIUM SULFATE 1GM/100ML 100 ML IV ONE (16:00)
[2018-01-06] MEDS ORDERED: POTASSIUM CHLORIDE 20 MEQ, LIDOCAINE 1% (LOCAL ANESTH.) 2 ML in SODIUM CHL 0.9% 100 ML IV ONE (16:00)
[2018-01-06 17:00] VITALS: BP 107/58
[2018-01-06 22:00] VITALS: BP 122/67
[2018-01-06] MEDS: DONEPEZIL HYDROCHLORIDE 5 MG TAB PO SCH (23:00)
[2018-01-06] MEDS: ATORVASTATIN 20 MG TAB PO SCH (23:00)
[2018-01-07 05:00] VITALS: BP 104/50
[2018-01-07 05:58] LABS: Basophils # (auto) 0 uL; Basophils % (auto) 0.5 % (0.0-2.0); Eosinophils # (auto) 0.4 uL; Eosinophils % (auto) 5.7 % (0.0-7.0); Hematocrit 31.6 % (36.0-46.0); Hemoglobin 10.3 g/dL (12.2-16.2); Lymphocytes % (auto) 30.6 % (10.0-50.0); Mean Corpuscular Hemoglobin 27.8 pg (28.0-32.0); Mean Corpuscular Hgb Conc. 32.6 g/dL (32.0-36.0); Mean Corpuscular Volume 85.4 fL (80.0-100.0); Monocytes # (auto) 0.4 uL; Monocytes % (auto) 6.1 % (0.0-12.0); Neutrophils # (auto) 3.8 uL; Neutrophils % (auto) 57.1 % (37.0-80.0); Nucleated Red Blood Cells % 0.1 %; Platelet Count (auto) 246 10^3/uL (140-450); Red Blood Cells 3.71 10^6/uL (4.0-5.20); Red Cell Distribution Width 15.4 % (11.8-14.3); White Blood Cell 6.7 10^3/uL (4.4-10.8)
[2018-01-07] MEDS: InsuLIN REG 1unit/0.01ml Soln (100units/ml) SC SCH ×4 (06:00→22:30)
[2018-01-07] MEDS: ACCU-CHEK COMFORT CURVE STRIP VI SCH ×4 (06:16→22:30)
[2018-01-07] MEDS: glyBURIDE 5 MG TAB PO SCH (06:18)
[2018-01-07 07:04] LABS: Potassium 3.1 mmol/L (3.5-5.1)
[2018-01-07 07:14] LABS: Albumin 2.5 g/dL (3.4-5.0); Calcium 8.1 mg/dL (8.5-10.1)
[2018-01-07 07:26] LABS: Bilirubin, Total 0.4 mg/dL (0.2-1.0); Total Protein 5.5 g/dL (6.4-8.2)
[2018-01-07 07:30] VITALS: BP 135/66
[2018-01-07 08:00] VITALS: BP 135/66
[2018-01-07] MEDS ORDERED: POTASSIUM CHL 20 Meq TABLET PO ONE (08:00)
[2018-01-07] MEDS: LEVOFLOXACIN 500MG 100 ML IV SCH (09:45)
[2018-01-07] MEDS: LISINOPRIL 5 MG TAB PO SCH (09:45)
[2018-01-07] MEDS: FOLIC ACID 1 MG TAB PO SCH (09:46)
[2018-01-07] MEDS: TICAGRELOR 90 MG TAB PO SCH ×2 (09:46→22:07)
[2018-01-07] MEDS: ENOXAPARIN SOD 40 MG/0.4 ML SYRINGE SC SCH (09:47)
[2018-01-07 12:19] VITALS: BP 124/63
[2018-01-07] MEDS: VANCOMYCIN 750 MG in D5W 5% 250 ML IV SCH (16:02)
[2018-01-07] MEDS: FAMOTIDINE 20 MG TAB PO SCH ×2 (16:02→21:55)
[2018-01-07 16:43] VITALS: BP 134/64
[2018-01-07] MEDS: Boost Glucose Control 8 Ounces PO SCH (18:08)
[2018-01-07] MEDS: PRO-STAT 64 30ML PO SCH (18:09)
[2018-01-07] MEDS: MULTIPLE VITAMINS W/ MINERALS TAB PO SCH (18:16)
[2018-01-07] MEDS: DONEPEZIL HYDROCHLORIDE 5 MG TAB PO SCH (21:54)
[2018-01-07] MEDS: ASCORBIC ACID 500 MG TAB PO SCH (21:54)
[2018-01-07] MEDS: ATORVASTATIN 20 MG TAB PO SCH (21:55)
[2018-01-07 22:00] VITALS: BP 119/66
[2018-01-07] MEDS: HYDROcodone-ACET 5/325MG TAB PO PRN (22:08)
[2018-01-08] MEDS: HALOPERIDOL 5 MG TAB PO PRN ×2 (00:21→07:47)
[2018-01-08 05:00] VITALS: BP 100/55
[2018-01-08] MEDS: InsuLIN REG 1unit/0.01ml Soln (100units/ml) SC SCH ×4 (05:41→23:44)
[2018-01-08] MEDS: ACCU-CHEK COMFORT CURVE STRIP VI SCH ×4 (05:42→23:45)
[2018-01-08] MEDS: glyBURIDE 5 MG TAB PO SCH (06:33)
[2018-01-08 06:41] LABS: Albumin 2.3 g/dL (3.4-5.0); Calcium 8.1 mg/dL (8.5-10.1); Potassium 3.1 mmol/L (3.5-5.1)
[2018-01-08 06:46] LABS: Bilirubin, Total 0.3 mg/dL (0.2-1.0); Total Protein 5.3 g/dL (6.4-8.2)
[2018-01-08] MEDS: HYDROcodone-ACET 5/325MG TAB PO PRN ×2 (07:53→20:59)
[2018-01-08] MEDS: Boost Glucose Control 8 Ounces PO SCH ×3 (07:54→17:57)
[2018-01-08] MEDS: PRO-STAT 64 30ML PO SCH ×2 (08:48→17:57)
[2018-01-08 09:00] VITALS: BP 136/62
[2018-01-08] MEDS: LEVOFLOXACIN 500MG 100 ML IV SCH (10:35)
[2018-01-08] MEDS: FOLIC ACID 1 MG TAB PO SCH (10:35)
[2018-01-08] MEDS: TICAGRELOR 90 MG TAB PO SCH ×2 (10:35→23:26)
[2018-01-08] MEDS: MULTIPLE VITAMINS W/ MINERALS TAB PO SCH (10:35)
[2018-01-08] MEDS: ASCORBIC ACID 500 MG TAB PO SCH ×2 (10:36→23:27)
[2018-01-08] MEDS: FAMOTIDINE 20 MG TAB PO SCH ×2 (10:36→23:27)
[2018-01-08] MEDS: LISINOPRIL 5 MG TAB PO SCH (10:37)
[2018-01-08] MEDS: ENOXAPARIN SOD 40 MG/0.4 ML SYRINGE SC SCH (10:38)
[2018-01-08] MEDS ORDERED: HALOPERIDOL LACTATE 5 MG/ML INJ VIAL IV PRN ×2 (12:00→13:15)
[2018-01-08 13:00] VITALS: BP 130/64
[2018-01-08] MEDS ORDERED: POTASSIUM CHL 20 Meq TABLET PO ONE (14:00)
[2018-01-08] MEDS: VANCOMYCIN 750 MG in D5W 5% 250 ML IV SCH (15:04)
[2018-01-08 16:41] VITALS: BP 124/69
[2018-01-08 21:50] VITALS: BP 135/60
[2018-01-08] MEDS: DONEPEZIL HYDROCHLORIDE 5 MG TAB PO SCH (23:26)
[2018-01-08] MEDS: ATORVASTATIN 20 MG TAB PO SCH (23:27)
[2018-01-09 05:05] VITALS: BP 111/50
[2018-01-09] MEDS: ACCU-CHEK COMFORT CURVE STRIP VI SCH ×4 (06:00→23:26)
[2018-01-09] MEDS: InsuLIN REG 1unit/0.01ml Soln (100units/ml) SC SCH ×4 (06:00→23:26)
[2018-01-09] MEDS: glyBURIDE 5 MG TAB PO SCH (07:00)
[2018-01-09 07:25] LABS: Basophils # (auto) 0 uL; Basophils % (auto) 0.6 % (0.0-2.0); Eosinophils # (auto) 0.4 uL; Eosinophils % (auto) 5.9 % (0.0-7.0); Hematocrit 32.1 % (36.0-46.0); Hemoglobin 10.7 g/dL (12.2-16.2); Lymphocytes # (auto) 1.6 uL; Lymphocytes % (auto) 23.3 % (10.0-50.0); Mean Corpuscular Hgb Conc. 33.2 g/dL (32.0-36.0); Mean Corpuscular Volume 84.1 fL (80.0-100.0); Monocytes # (auto) 0.4 uL; Monocytes % (auto) 5.9 % (0.0-12.0); Neutrophils # (auto) 4.5 uL; Neutrophils % (auto) 64.3 % (37.0-80.0); Nucleated Red Blood Cells % 0.1 %; Platelet Count (auto) 269 10^3/uL (140-450); Red Blood Cells 3.82 10^6/uL (4.0-5.20); Red Cell Distribution Width 15.6 % (11.8-14.3); White Blood Cell 6.9 10^3/uL (4.4-10.8)
[2018-01-09 07:45] LABS: Albumin 2.6 g/dL (3.4-5.0); BUN/Creatinine Ratio 41.9; Calcium 8.4 mg/dL (8.5-10.1); Magnesium 2.2 mg/dL (1.6-2.6); Potassium 3.9 mmol/L (3.5-5.1)
[2018-01-09 07:47] LABS: Bilirubin, Total 0.4 mg/dL (0.2-1.0); Total Protein 5.9 g/dL (6.4-8.2)
[2018-01-09 09:00] VITALS: BP 120/59
[2018-01-09] MEDS: MULTIPLE VITAMINS W/ MINERALS TAB PO SCH (09:47)
[2018-01-09] MEDS: ENOXAPARIN SOD 40 MG/0.4 ML SYRINGE SC SCH (09:47)
[2018-01-09] MEDS: ASCORBIC ACID 500 MG TAB PO SCH ×2 (09:47→23:10)
[2018-01-09] MEDS: FAMOTIDINE 20 MG TAB PO SCH ×2 (09:48→23:09)
[2018-01-09] MEDS: TICAGRELOR 90 MG TAB PO SCH ×2 (09:48→23:09)
[2018-01-09] MEDS: FOLIC ACID 1 MG TAB PO SCH (09:48)
[2018-01-09] MEDS: Boost Glucose Control 8 Ounces PO SCH ×3 (10:28→17:51)
[2018-01-09] MEDS: PRO-STAT 64 30ML PO SCH ×2 (10:28→17:51)
[2018-01-09] MEDS: LEVOFLOXACIN 500MG 100 ML IV SCH (10:29)
[2018-01-09] MEDS: LISINOPRIL 5 MG TAB PO SCH (10:30)
[2018-01-09 13:00] VITALS: BP 104/53
[2018-01-09] MEDS ORDERED: VANCOMYCIN 750 MG in D5W 5% 250 ML IV SCH (16:00)
[2018-01-09 16:37] VITALS: BP 113/55
[2018-01-09 21:47] VITALS: BP 132/72
[2018-01-09] MEDS: SULFAMETHOX W/TRIMETH(800/160MG) DS TAB PO SCH (23:09)
[2018-01-09] MEDS: ATORVASTATIN 20 MG TAB PO SCH (23:10)
[2018-01-09] MEDS: DONEPEZIL HYDROCHLORIDE 5 MG TAB PO SCH (23:10)
[2018-01-10 05:00] VITALS: BP 126/61
[2018-01-10] MEDS: InsuLIN REG 1unit/0.01ml Soln (100units/ml) SC SCH ×2 (06:00→12:59)
[2018-01-10] MEDS: HYDROcodone-ACET 5/325MG TAB PO PRN (06:04)
[2018-01-10] MEDS: ACCU-CHEK COMFORT CURVE STRIP VI SCH ×2 (06:25→12:58)
[2018-01-10 08:21] VITALS: BP 101/52
[2018-01-10] MEDS: LISINOPRIL 5 MG TAB PO SCH (10:00)
[2018-01-10] MEDS: MULTIPLE VITAMINS W/ MINERALS TAB PO SCH (10:33)
[2018-01-10] MEDS: FOLIC ACID 1 MG TAB PO SCH (10:33)
[2018-01-10] MEDS: SULFAMETHOX W/TRIMETH(800/160MG) DS TAB PO SCH (10:34)
[2018-01-10] MEDS: TICAGRELOR 90 MG TAB PO SCH (10:34)
[2018-01-10] MEDS: FAMOTIDINE 20 MG TAB PO SCH (10:34)
[2018-01-10] MEDS: ASCORBIC ACID 500 MG TAB PO SCH (10:34)
[2018-01-10] MEDS: ENOXAPARIN SOD 40 MG/0.4 ML SYRINGE SC SCH (10:35)
[2018-01-10] MEDS: Boost Glucose Control 8 Ounces PO SCH ×2 (10:35→12:58)
[2018-01-10] MEDS: PRO-STAT 64 30ML PO SCH (10:35)
[2018-01-10] MEDS: glyBURIDE 5 MG TAB PO SCH (10:36)
[2018-01-10 12:20] VITALS: BP 101/52
[2018-01-10 12:52] VITALS: BP 98/57
[2018-01-10 13:46] VITALS: BP 98/57
== END 2018-01-10 16:15 | DRG 604 ==
LOC: ER 15:33 → OVERFLOW 15:34 → WEST WING 01-06 08:22 → TELE-WESTW 01-08 13:02
PROVIDERS: ADMIT Nurse Practitioner; ATTEND Internal Medicine
DX: S01.81XA Laceration without foreign body of other part of head, initial encounter (principal); E43 Unspecified severe protein-calorie malnutrition; G92 Toxic encephalopathy; L89.152 Pressure ulcer of sacral region, stage 2; E88.09 Other disorders of plasma-protein metabolism, not elsewhere classified; B95.62 Methicillin resistant Staphylococcus aureus infection as the cause of diseases classified elsewhere; G30.9 Alzheimer's disease, unspecified; E11.9 Type 2 diabetes mellitus without complications; B95.7 Other staphylococcus as the cause of diseases classified elsewhere; F02.80 Dementia in other diseases classified elsewhere, unspecified severity, without behavioral disturbance, psychotic disturbance, mood disturbance, and anxiety; N39.0 Urinary tract infection, site not specified; Z68.1 Body mass index [BMI] 19.9 or less, adult; Z66 Do not resuscitate; B96.4 Proteus (mirabilis) (morganii) as the cause of diseases classified elsewhere; D63.8 Anemia in other chronic diseases classified elsewhere; W18.39XA Other fall on same level, initial encounter; E03.9 Hypothyroidism, unspecified; E87.6 Hypokalemia; E53.8 Deficiency of other specified B group vitamins; E78.5 Hyperlipidemia, unspecified; I10 Essential (primary) hypertension; I25.10 Atherosclerotic heart disease of native coronary artery without angina pectoris; R29.6 Repeated falls; F32.9 Major depressive disorder, single episode, unspecified; Z96.651 Presence of right artificial knee joint; F41.9 Anxiety disorder, unspecified; Z82.49 Family history of ischemic heart disease and other diseases of the circulatory system; Z86.73 Personal history of transient ischemic attack (TIA), and cerebral infarction without residual deficits; Z90.710 Acquired absence of both cervix and uterus; Z79.899 Other long term (current) drug therapy; Z95.5 Presence of coronary angioplasty implant and graft; Z90.49 Acquired absence of other specified parts of digestive tract; Z90.89 Acquired absence of other organs; Z79.82 Long term (current) use of aspirin; Y93.89 Activity, other specified; Y92.89 Other specified places as the place of occurrence of the external cause; Y99.8 Other external cause status; Z71.3 Dietary counseling and surveillance
CPT/HCPCS: 36415; 51702; 70450; 71045; 80053; 80202; 81001; 82962; 83605; 83735; 83880; 84132; 85025; 87040; 87077; 87086; 87186; 87205; 95819; 96361; 96374; 96375; 97116; 97163; 97530; J0696; J1815; J1956; J2001; J7060